=== PATIENT | female | born 1965 | race Caucasian/White ===

== ENCOUNTER → 2017-06-20 | Outpatient (CLI) | payer BC ==
[~2017-06-20] MED LIST: LORTAB 5-325 M1 EACH PO; NAPROSYN500 MG PO
== END | disposition home or self-care (01) ==
LOC: CDC 10:34
DX: Z01.810 Encounter for preprocedural cardiovascular examination (principal); N63.10 Unspecified lump in the right breast, unspecified quadrant; R94.31 Abnormal electrocardiogram [ECG] [EKG]
CPT/HCPCS: 93000

== ENCOUNTER 2017-07-10 06:07 | Day surgery (SDC) | payer BC ==
[~2017-07-10] VITALS: Ht 167.6 cm; Wt 102.1 kg
[~2017-07-10 06:07] MED LIST changes: +BIOTIN 5000MCG PO; +CLARITIN,ALAVAR10 MG PO; +FLONASE16 G1 BOTH NARES; +HYDROCHLOROTHIA25 MG PO; +KLONOPIN0.5 M1 PO; +PROAIR HFA8.5 GM IH; +PROTONIX40 MG PO; +PROZAC40 MG PO; +VALTREX1000 MG PO; +VITAMIN D31000 UNI2 PO; +WELLBUTRIN XL150 MG PO
[2017-07-10 06:58] VITALS: BP 121/73
[2017-07-10] MEDS ORDERED: HYDROCODON-ACE1 EAC7 PO (09:44)
[2017-07-10 10:34] VITALS: BP 114/66
[2017-07-10 11:13] VITALS: BP 116/57
== END 2017-07-10 11:21 | disposition home or self-care (01) ==
LOC: SDC 06:07
PROC: 0HBT0ZX Excision of Right Breast, Open Approach, Diagnostic (ICD-10-PCS; principal; 2017-07-10)
DX: Q85.9 Phakomatosis, unspecified (principal); N63.10 Unspecified lump in the right breast, unspecified quadrant; G47.33 Obstructive sleep apnea (adult) (pediatric); E55.9 Vitamin D deficiency, unspecified
CPT/HCPCS: 88307; J0131; J0330; J0690; J2250; J3010; J7120; Q0175; S0020